=== PATIENT | female | born 1990 | race Caucasian/White ===

== ENCOUNTER 2020-04-26 18:49 | Observation (INO) | payer BC ==
[2020-04-26] MEDS ORDERED: SODIUM CHLORIDE 0.9% 1,000 ML IV STA (18:57)
--- NOTE | 2020-04-26 19:02 | ED ---
General Adult HPI - General Stated complaint: Tachycardia Time Seen by Provider: 04/26/20 18:51 Source: patient, EMS Mode of arrival: EMS Limitations: no limitations - History of Present Illness Initial comments: Dictation was produced using [email or web address] dictation software. please excuse any grammatical, word or spelling errors. This patient was cared for during a federal and state declared state of emergency secondary to Covid 19 Chief Complaint: 30-year-old female who is 13 weeks presents after dysrhythmia. History of Present Illness: 30-year-old female she is 13 weeks . Patient states she is having dinner proximal 1 hour prior to arrival when she took a drink of her cold water. All of a sudden she started to have tunnel vision. She felt like her vision went black. EMS was called. According to EMS patient had a heart rate on the monitor of approximately 1:30. After several minutes her heart rate went into the 220 range. She was treated for supraventricular tachycardia per she is given 1 dose of 6 mg of adenosine with no success. She is then given 12 mg of adenosine with conversion to sinus tachycardia. Patient states she feels fine currently. She doesn't have any history of arrhythmias per she has history of hypertension. No history of cardiac disease. The ROS documented in this emergency department record has been reviewed and confirmed by me. Those systems with pertinent positive or negative responses have been documented in the HPI. All other systems are other negative and/or noncontributory. PHYSICAL EXAM: General Impression: Alert and oriented x3, not in acute distress HEENT: Normocephalic atraumatic, extra-ocular movements intact, pupils equal and reactive to light bilaterally, mucous membranes moist. Cardiovascular: Heart regular rate and rhythm Chest: Able to complete full sentences, no retractions, no tachypnea Abdomen: abdomen soft, non-tender, non-distended, no organomegaly Musculoskeletal: Pulses present and equal in all extremities, no peripheral edema Motor: no focal deficits noted Neurological: CN II-XII grossly intact, no focal motor or sensory deficits noted Skin: Intact with no visualized rashes Psych: Normal affect and mood ED course: 30 y Old female presents today with episode of dysrhythmia. She is 13 weeks . She has no pelvic or abdominal complaints. Vital signs upon arrival shows heart rate of 1:15, rest of vital signs within acceptable limits. Patient's medications were reviewed patient takes labetalol 200 mg twice a day. heart tones are in the 150s. EKG interpretation: Ventricular rate 111, sinus tachycardia,. 156, QRS 70, QTc 448. No ID prolongation, no QTC prolongation, no ST or T-wave changes noted. There is S1 every 3 T3, T-wave inversions in 3 and aVF. No phthisis suggest WPW. Laboratory evaluation obtained. Mild leukocytosis 12.3 likely secondary chest pain coag panel is negative. Metabolic panel is negative. She was elevated 0.025. TSH normal. Urinalysis shows 1+ ketones rest of urinalysis is unremarka ble. Chest x-ray is nonacute. Patient was in the emergency department after fluids she still is persistently tachycardic. Patient was given her home dose of labetalol. Considering patient's degree of symptoms she will be admitted with cardiology and obstetrics consultation. Patient be admitted to [facility]. He is reevaluated at bedside approximately 8:20 PM. She is not showing any signs of respiratory distress. She has no chest pain. She denies any dyspnea. - Related Data Home Medications Medication Instructions Recorded Confirmed Aspirin EC [Ecotrin Low Dose] 81 mg PO DAILY 04/26/20 04/26/20 Cholecalciferol (Vitamin D3) 125 mcg PO DAILY 04/26/20 04/26/20 [Vitamin D3] Labetalol [Trandate] 200 mg PO BID@0800,199904/26/20 04/26/20 Npg-Grah-Ozbbg Acid 1 cap PO DAILY 04/26/20 04/26/20 [-U Capsule (formulary)] Allergies Allergy/AdvReac Type Severity Reaction Status Date / Time No Known Allergies Allergy Verified 04/26/20 18:59 Review of Systems ROS Statement: Those systems with pertinent positive or pertinent negative responses have been documented in the HPI. ROS Other: All systems not noted in ROS Statement are negative. Past Medical History Past Medical History: Hypertension History of Any Multi-Drug Resistant Organisms: None Reported Past Surgical History: Section, Cholecystectomy Past Psychological History: No Psychological Hx Reported Smoking Status: Never smoker Past Alcohol Use History: None Reported Past Drug Use History: None Reported General Exam Limitations: no limitations Course Vital Signs 04/26/20 04/26/20 04/26/20 18:51 19:15 19:17 Temperature 98.5 F Pulse Rate 115 H 80 Pulse Rate [ 115 H Folder Seamer Automatic ] Respiratory 18 18 Rate Blood Pressure 136/81 115/78 O2 Sat by Pulse 97 98 Oximetry Medical Decision Making - Lab Data Result diagrams: 04/26/20 19:00 04/26/20 19:00 Lab Results 04/26/20 04/26/20 04/26/20 Range/Units 19:00 19:00 19:00 WBC 12.3 H (3.8-10.6) k/uL RBC 4.53 (3.80-5.40) m/uL Hgb 13.8 (11.4-16.0) gm/dL Hct 39.9 (34.0-46.0) % MCV 88.1 (80.0-100.0) fL MCH 30.5 (25.0-35.0) pg MCHC 34.7 (31.0-37.0) g/dL RDW 12.0 (11.5-15.5) % Plt Count 235 (150-450) k/uL MPV 8.0 Neutrophils % 80 % Lymphocytes % 14 % Monocytes % 4 % Eosinophils % 1 % Basophils % 0 % Neutrophils # 9.8 H (1.3-7.7) k/uL Lymphocytes # 1.7 (1.0-4.8) k/uL Monocytes # 0.5 (0-1.0) k/uL Eosinophils # 0.1 (0-0.7) k/uL Basophils # 0.0 (0-0.2) k/uL PT 9.6 (9.0-12.0) sec INR 0.9 (<1.2) APTT 22.7 (22.0-30.0) sec Sodium (137-145) mmol/L Potassium (3.5-5.1) mmol/L Chloride (98-107) mmol/L Carbon Dioxide (22-30) mmol/L Anion Gap mmol/L BUN (7-17) mg/dL Creatinine (0.52-1.04) mg/dL Est GFR (CKD-EPI)AfAm (>60 ml/min/1.73 sqM) Est GFR (CKD-EPI)NonAf (>60 ml/min/1.73 sqM) Glucose (74-99) mg/dL Calcium (8.4-10.2) mg/dL Magnesium (1.6-2.3) mg/dL Total Bilirubin (0.2-1.3) mg/dL AST (14-36) U/L ALT (4-34) U/L Alkaline Phosphatase (38-126) U/L Troponin I (0.000-0.034) ng/mL Total Protein (6.3-8.2) g/dL Albumin (3.5-5.0) g/dL TSH (0.465-4.680) mIU/L Urine Color Colorless Urine Appearance Clear (Clear) Urine pH 6.5 (5.0-8.0) Ur Specific [place] 1.002 (1.001-1.035) Urine Protein Negative (Negative) Urine Glucose (UA) Negative (Negative) Urine Ketones 1+ H (Negative) Urine Blood Negative (Negative) Urine Nitrite Negative (Negative) Urine Bilirubin Negative (Negative) Urine Urobilinogen <2.0 (<2.0) mg/dL Ur Leukocyte Esterase Negative (Negative) 04/26/20 04/26/20 Range/Units 19:00 19:00 WBC (3.8-10.6) k/uL RBC (3.80-5.40) m/uL Hgb (11.4-16.0) gm/dL Hct (34.0-46.0) % MCV (80.0-100.0) fL MCH (25.0-35.0) pg MCHC (31.0-37.0) g/dL RDW (11.5-15.5) % Plt Count (150-450) k/uL MPV Neutrophils % % Lymphocytes % % Monocytes % % Eosinophils % % Basophils % % Neutrophils # (1.3-7.7) k/uL Lymphocytes # (1.0-4.8) k/uL Monocytes # (0-1.0) k/uL Eosinophils # (0-0.7) k/uL Basophils # (0-0.2) k/uL PT (9.0-12.0) sec INR (<1.2) APTT (22.0-30.0) sec Sodium 135 L (137-145) mmol/L Potassium 3.8 (3.5-5.1) mmol/L Chloride 107 (98-107) mmol/L Carbon Dioxide 22 (22-30) mmol/L Anion Gap 6 mmol/L BUN 11 (7-17) mg/dL Creatinine 0.62 (0.52-1.04) mg/dL Est GFR (CKD-EPI)AfAm >90 (>60 ml/min/1.73 sqM) Est GFR (CKD-EPI)NonAf >90 (>60 ml/min/1.73 sqM) Glucose 127 H (74-99) mg/dL Calcium 10.2 (8.4-10.2) mg/dL Magnesium 1.9 (1.6-2.3) mg/dL Total Bilirubin 0.3 (0.2-1.3) mg/dL AST 21 (14-36) U/L ALT 16 (4-34) U/L Alkaline Phosphatase 47 (38-126) U/L Troponin I 0.025 (0.000-0.034) ng/mL Total Protein 7.0 (6.3-8.2) g/dL Albumin 4.3 (3.5-5.0) g/dL TSH 1.120 (0.465-4.680) mIU/L Urine Color Urine Appearance (Clear) Urine pH (5.0-8.0) Ur Specific [place] (1.001-1.035) Urine Protein (Negative) Urine Glucose (UA) (Negative) Urine Ketones (Negative) Urine Blood (Negative) Urine Nitrite (Negative) Urine Bilirubin (Negative) Urine Urobilinogen (<2.0) mg/dL Ur Leukocyte Esterase (Negative) Disposition Clinical Impression: Arrhythmia Disposition: ADMITTED IP TO THIS HOSP Condition: Fair Referrals: Laverne Disla DO [Primary Care Provider] - 1-2 days Decision Time: 20:39
[2020-04-26 19:26] LABS: Basophils % (A) 0 %; Eosinophils # (A) 0.1 k/uL (0-0.7); Eosinophils % (A) 1 %; HCT 39.9 % (34.0-46.0); HGB 13.8 gm/dL (11.4-16.0); Lymphocytes # (A) 1.7 k/uL (1.0-4.8); Lymphocytes % (A) 14 %; MCH 30.5 pg (25.0-35.0); MCHC 34.7 g/dL (31.0-37.0); MCV 88.1 fL (80.0-100.0); Monocytes # (A) 0.5 k/uL (0-1.0); Monocytes % (A) 4 %; Neutrophils # (A) 9.8 k/uL (1.3-7.7); Neutrophils % (A) 80 %; Platelet Count 235 k/uL (150-450); RBC 4.53 m/uL (3.80-5.40); WBC 12.3 k/uL (3.8-10.6)
[2020-04-26 19:32] LABS: Appearance,Urine Clear (Clear); Bilirubin,Urine Negative (Negative); Blood,Urine Negative (Negative); Color,Urine Colorless; Glucose,Urine (UA) Negative (Negative); Ketones,Urine 1+ (Negative); Leukocyte Esterase,Urine Negative (Negative); Nitrite,Urine Negative (Negative); PH, Urine 6.5 (5.0-8.0); Protein,Urine Negative (Negative); Specific Gravity,Urine 1.002 (1.001-1.035); Urobilinogen,Urine <2.0 mg/dL (<2.0)
[2020-04-26 19:35] LABS: INR 0.9 (<1.2); Partial Thromboplastin Time 22.7 sec (22.0-30.0); Prothrombin Time 9.6 sec (9.0-12.0)
[2020-04-26] MEDS ORDERED: LABETALOL 200 MG TAB PO STA (19:44)
--- NOTE | 2020-04-26 19:51 | XR ---
EXAMINATION TYPE: XR chest 2V DATE OF EXAM: 04/26/2020 COMPARISON: NONE HISTORY: Syncope TECHNIQUE: 2 views FINDINGS: Heart and mediastinum are normal. Lungs are clear. Diaphragm is normal. Bony thorax appears normal. There are chest leads. IMPRESSION: Normal chest.
[2020-04-26 20:26] LABS: ALT 16 U/L (4-34); AST 21 U/L (14-36); African American GFR (CKD) >90 (>60 ml/min/1.73 sqM); Albumin 4.3 g/dL (3.5-5.0); Alkaline Phosphatase 47 U/L (38-126); Anion Gap 6 mmol/L; Blood Urea Nitrogen 11 mg/dL (7-17); Calcium 10.2 mg/dL (8.4-10.2); Carbon Dioxide 22 mmol/L (22-30); Chloride 107 mmol/L (98-107); Glucose 127 mg/dL (74-99); Magnesium 1.9 mg/dL (1.6-2.3); Non-African American GFR(CKD) >90 (>60 ml/min/1.73 sqM); Potassium 3.8 mmol/L (3.5-5.1); Sodium 135 mmol/L (137-145); Total Bilirubin 0.3 mg/dL (0.2-1.3)
[2020-04-26] MEDS ORDERED: NALOXONE 0.4 MG/ML 1 ML VIAL IV PRN (20:39)
[2020-04-26 22:42] VITALS: RESP 16
--- NOTE | 2020-04-27 07:17 | P.OBCN ---
History of Present Illness Consult date: 04/27/20 Requesting physician: Philip Clark Reason for consult: other (Incidental ) Chief complaint: Tachycardia History of present illness: This is a 30-year-old female 2 para 1 with an estimated date of confinement of 10/27/2020, estimated gestational age of 13-4/7 weeks, who presented to the emergency room with tachycardia. She states she was drinking a glass of [place] and then all of a sudden she had tunnel vision and her wish and went black. She did not pass out but she did feel very dizzy. She felt her heart beating very fast. When EMS arrived the shoulder heart rate at 130 and then elevated up to a maximum of 280. They did give her 6 mg of adenosine followed by 12 mg of adenosine and within approximately 1 minute, her heart rate returned to normal. She has had no symptoms since that time. She has had no complications so far this . She does see a Dr. Doug Nunez out of [place] and she has had care so far during this . She did have an ultrasound early on in to confirm . She does have a history of chronic hypertension and has been on labetalol for this. Her obstetrical history is significant for history of 1 section at term due to failure to progress. No other complications. Gynecologic history: No history of sexual transmitted diseases. Review of Systems Cardiovascular: Reports rapid heart beat (Currently resolved) Genitourinary: Reports Neurological: Reports visual changes (Resolved) Past Medical History Past Medical History: Hypertension History of Any Multi-Drug Resistant Organisms: None Reported Past Surgical History: Section, Cholecystectomy Past Psychological History: No Psychological Hx Reported Smoking Status: Never smoker Past Alcohol Use History: None Reported Past Drug Use History: None Reported Medications and Allergies Home Medications Medication Instructions Recorded Confirmed Type Aspirin EC [Ecotrin Low Dose] 81 mg PO DAILY 04/26/20 04/26/20 History Cholecalciferol (Vitamin D3) 125 mcg PO DAILY 04/26/20 04/26/20 History [Vitamin D3] Labetalol [Trandate] 200 mg PO BID@0800,199904/26/20 04/26/20 History Oak-Umql-Bjbva Acid 1 cap PO DAILY 04/26/20 04/26/20 History [-U Capsule (formulary)] Allergies Allergy/AdvReac Type Severity Reaction Status Date / Time No Known Allergies Allergy Verified 04/26/20 18:59 Exam Osteopathic Statement: *. No significant issues noted on an osteopathic structural exam other than those noted in the History and Physical/Consult. Vital Signs Temp Pulse Pulse Resp BP BP Pulse Ox 04/27/20 03:30 98.1 F 83 16 124/71 100 04/26/20 22:10 98 F 94 16 142/88 97 04/26/20 20:54 105 H 18 136/81 99 04/26/20 19:17 115 H 04/26/20 19:15 80 18 115/78 98 04/26/20 18:51 98.5 F 115 H 18 136/81 97 Intake and Output 04/26/20 04/27/20 04/27/20 22:59 06:59 14:59 Other: Voiding Method Toilet Toilet # Voids 1 2 # Bowel Movements 1 Weight 88.451 kg Results Result Diagrams: 04/26/20 19:00 04/26/20 19:00 Abnormal Lab Results - Last 24 Hours (Table) 04/26/20 04/26/20 04/26/20 Range/Units 19:00 19:00 19:00 WBC 12.3 H (3.8-10.6) k/uL Neutrophils # 9.8 H (1.3-7.7) k/uL Sodium 135 L (137-145) mmol/L Glucose 127 H (74-99) mg/dL Urine Ketones 1+ H (Negative) Assessment and Plan (1) as incidental finding Current Visit: Yes Status: Acute Code(s): Z33.1 - STATE, INCIDENTAL SNOMED Code(s): 83912291 (2) Arrhythmia Current Visit: Yes Status: Acute Code(s): I49.9 - CARDIAC ARRHYTHMIA, UNSPECIFIED SNOMED Code(s): 933096021 Plan: I have advised her to continue her vitamins and baby aspirin along with her labetalol. She will follow up with Dr. Pizarro after discharge. If there are any concerns about medication use in , please do not hesitate to contact us. Dr. Avalos will be apron operator this weekend.
[2020-04-27 07:46] VITALS: BP 134/77; PULSE 89; TEMP 98.9
[2020-04-27] MEDS ORDERED: LABETALOL 200 MG TAB PO SCH (08:00)
[2020-04-27] MEDS ORDERED: PRENATAL VIT-IRON-FOLIC ACID 1 EACH CAP PO SCH (09:00)
[2020-04-27] MEDS ORDERED: CHOLECALCIFEROL 400 UNIT TAB PO SCH (09:00)
[2020-04-27] MEDS ORDERED: ASPIRIN 81 MG PO SCH (09:00)
--- NOTE | 2020-04-27 11:39 | P.CRDCN ---
History of Present Illness Consult date: 04/27/20 Reason for Consult (text): Arrhythmia and presyncope History of present illness: The patient is a 30-year-old female with past medical history of hypertension, who presented to the hospital with new onset of cardiac arrhythmia. The patient states she was eating dinner when she took a large gulp of ice water. She then immediately lost her vision and became dizzy. Her vision returned and she was able to lie down on her couch until EMS arrived. At that point in time she was evaluated with a heart rate around the 140, when she ambulated with assistance to the ambulance. She was then found to have a rapid supraventricular rhythm with a heart rate over 200. She was subsequently given 6 mg of adenosine, followed by 12 mg which converted her back to sinus mechanism. She was transported to the emergency room where she then received an additional dose of labetalol, which is her home medication for hypertension during . The patient was interviewed and examined this morning lying comfortably in bed. She states she is completely asymptomatic from the cardiac standpoint. No chest pain or chest pressure. No palpitations, dizziness, or lightheadedness. DIAGNOSTICS: Rhythm strips via EMS show AVNRT, followed by sinus rhythm EKG shows sinus tachycardia with normal MA, narrow QRS and QT less than or 100 ms Vital signs show blood pressure at 134/77, heart rate 89, respiratory rate 16, temperature 98.9F, SpO2 99% on room air Lab work shows WBC at 12.3, hemoglobin 13.8, platelet count 235, sodium 135, potassium 3.8, BUN 11, creatinine 0.62, magnesium 1.9, AST 21, ALT 16, troponin 0.025, TSH 1.120 PAST MEDICAL HISTORY: Hypertension REVIEW OF SYSTEMS: No fever or chills. No cough or expectoration. No diap horesis. Patient denies headache, dizziness, blurred vision, double vision. Patient denies any stomach discomfort. No nausea, vomiting. No hematochezia. No hematemesis. Denies any black stools or blood in his stools. Denies dysuria or hematuria. No muscle weakness or numbness. No chest pain or chest pressure. No shortness of breath. PHYSICAL EXAMINATION: This is a 30-year-old female in no apparent distress at the time of my examination. HEENT: Head is atraumatic, normocephalic. Pupils are equal, round. Sclerae anicteric. Conjunctivae are clear. Mucous membranes of the mouth are moist. Neck is supple. There is no jugular venous distention. No carotid bruit is heard. CHEST EXAMINATION: Lungs are clear to auscultation. No chest wall tenderness is noted on palpation or with deep breathing. HEART EXAMINATION: Heart regular rate and rhythm. S1, S2 heard. No murmurs, gallops or rub. ABDOMEN: Soft, nontender. Bowel sounds are heard. No organomegaly noted. EXTREMITIES: 2+ peripheral pulses with no evidence of peripheral edema and no calf tenderness noted. NEUROLOGIC EXAMINATION: Patient is awake, alert and oriented x3. 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 It is likely her episode was triggered by rapid ingestion of ice water. She was instructed to continue as normal and we will consider SVT ablation in the future, approximately 8-9 months after she gives to her child. At that time we will also do secondary workup for hypertension. Should she have an additional episode of AVNRT she was instructed on vagal maneuvers and additional glasses of ice water. Should her symptoms not resolve, she was instructed to notify EMS and logistician should proceed with 12 mg of adenosine. She will follow-up in our office in several weeks for continued monitoring of hypertension and preeclampsia. Past Medical History Past Medical History: Hypertension History of Any Multi-Drug Resistant Organisms: None Reported Past Surgical History: Section, Cholecystectomy Past Psychological History: No Psychological Hx Reported Smoking Status: Never smoker Past Alcohol Use History: None Reported Past Drug Use History: None Reported Medications and Allergies Home Medications Medication Instructions Recorded Confirmed Type Aspirin EC [Ecotrin Low Dose] 81 mg PO DAILY 04/26/20 04/26/20 History Cholecalciferol (Vitamin D3) 125 mcg PO DAILY 04/26/20 04/26/20 History [Vitamin D3] Labetalol [Trandate] 200 mg PO BID@0800,199904/26/20 04/26/20 History Iha-Vrri-Nhqna Acid 1 cap PO DAILY 04/26/20 04/26/20 History [-U Capsule (formulary)] Allergies Allergy/AdvReac Type Severity Reaction Status Date / Time No Known Allergies Allergy Verified 04/26/20 18:59 Physical Exam Vitals: Vital Signs Temp Pulse Pulse Resp BP BP Pulse Ox 04/27/20 07:43 98.9 F 89 16 134/77 99 04/27/20 03:30 98.1 F 83 16 124/71 100 04/26/20 22:10 98 F 94 16 142/88 97 04/26/20 20:54 105 H 18 136/81 99 04/26/20 19:17 115 H 04/26/20 19:15 80 18 115/78 98 04/26/20 18:51 98.5 F 115 H 18 136/81 97 Intake and Output 04/26/20 04/27/20 04/27/20 22:59 06:59 14:59 Other: Voiding Method Toilet Toilet Toilet # Voids 1 2 # Bowel Movements 1 1 Weight 88.451 kg Results 04/26/20 19:00 04/26/20 19:00 Cardiac Enzymes 04/26/20 04/26/20 Range/Units 19:00 19:00 AST 21 (14-36) U/L Troponin I 0.025 (0.000-0.034) ng/mL Coagulation 04/26/20 Range/Units 19:00 PT 9.6 (9.0-12.0) sec APTT 22.7 (22.0-30.0) sec CBC 04/26/20 Range/Units 19:00 WBC 12.3 H (3.8-10.6) k/uL RBC 4.53 (3.80-5.40) m/uL Hgb 13.8 (11.4-16.0) gm/dL Hct 39.9 (34.0-46.0) % Plt Count 235 (150-450) k/uL Comprehensive Metabolic Panel 04/26/20 Range/Units 19:00 Sodium 135 L (137-145) mmol/L Potassium 3.8 (3.5-5.1) mmol/L Chloride 107 (98-107) mmol/L Carbon Dioxide 22 (22-30) mmol/L BUN 11 (7-17) mg/dL Creatinine 0.62 (0.52-1.04) mg/dL Glucose 127 H (74-99) mg/dL Calcium 10.2 (8.4-10.2) mg/dL AST 21 (14-36) U/L ALT 16 (4-34) U/L Alkaline Phosphatase 47 (38-126) U/L Total Protein 7.0 (6.3-8.2) g/dL Albumin 4.3 (3.5-5.0) g/dL Current Medications Generic Name Dose Route Start Last Admin Trade Name Freq PRN Reason Stop Dose Admin Aspirin 81 mg 04/27/20 09:00 04/27/20 08:48 Aspirin 81 Mg PO 81 mg DAILY MELISSA Administration Cholecalciferol 200 unit 04/27/20 09:00 04/27/20 08:48 Cholecalciferol 400 Unit Tab PO 200 unit DAILY MELISSA Administration Labetalol HCl 200 mg 04/27/20 08:00 04/27/20 08:48 Labetalol 200 Mg Tab PO 200 mg BID@0800,2000 MELISSA Administration Multivi/Iron Carb/Fe Sulf/FA/Prenat 1 each 04/27/20 09:00 04/27/20 08:48 Swa-Xfmn-Htrio Acid 1 Each Cap PO 1 each DAILY MELISSA Administration Naloxone HCl 0.2 mg 04/26/20 20:39 Naloxone 0.4 Mg/Ml 1 Ml Vial IV Q2M PRN Opioid Reversal Intake and Output 04/26/20 04/27/20 04/27/20 22:59 06:59 14:59 Other: Voiding Method Toilet Toilet Toilet # Voids 1 2 # Bowel Movements 1 1 Weight 88.451 kg 04/26/20 19:00 04/26/20 19:00
== END 2020-04-27 13:00 | disposition home or self-care (01) ==
LOC: EC 18:49 → 1SOBS 20:40
PROVIDERS: ADMIT Hospitalist; ATTEND Hospitalist
DX: O99.411 Diseases of the circulatory system complicating pregnancy, first trimester (principal); I47.1 Supraventricular tachycardia; O11.1 Pre-existing hypertension with pre-eclampsia, first trimester; O10.011 Pre-existing essential hypertension complicating pregnancy, first trimester; Z3A.13 13 weeks gestation of pregnancy; Z79.899 Other long term (current) drug therapy; Z79.82 Long term (current) use of aspirin; Z98.890 Other specified postprocedural states; Z90.49 Acquired absence of other specified parts of digestive tract
CPT/HCPCS: 93005 ×2; 96360; 96361; 99285; 36415; 80053; 83735; 84443; 84484; 85025; 85610; 85730; 81003; 71046; G0378 ×2; S0197

== ENCOUNTER → 2021-02-21 | Outpatient (CLI) | payer BC ==
--- NOTE | 2021-02-21 08:58 | US ---
EXAMINATION TYPE: US renal artery duplex complet DATE OF EXAM: 02/21/2021 COMPARISON: NONE CLINICAL HISTORY: I70.1 renal artery stenosis. controlled HTN for 6 years MEASUREMENTS: RENAL SIZE: Rt Kidney: 10.9 x 6.0 x 4.7cm Lt Kidney: 11.5 x 5.5 x 5.0cm RESISTANCE INDEX Right: 0.61 Left: 0.63 RA/AO RATIO (< 3.5 ) Right: 1.4 Left: 1.3 RA VELOCITY ( < 180 cm/s) Right: 165.1 cm/s Left: 162.9 cm/s Technical limitations due to overlying bowel content. aorta appears unremarkable. dilated renal pelv is bilateral kidneys. no evidence of renal artery stenosis as visualized. IMPRESSION: Bilateral fullness of the renal collecting systems. No evidence for renal artery stenosis.
== END | disposition home or self-care (01) ==
LOC: RADUSWWP 07:54
PROVIDERS: ATTEND Internal Medicine Clinical Cardiac Electrophysiology
DX: I10 Essential (primary) hypertension (principal)
CPT/HCPCS: 93975

== ENCOUNTER 2022-03-31 11:58 | Day surgery (SDC) | payer BC ==
[2022-03-28 08:34] VITALS: BMI 32.3
[~2022-03-31 11:58] MED LIST: DEXAMETHASONE SOD PHOSPHATE 4 MG/ML 1 ML VIAL IV ONE; LIDOCAINE 1% (10MG/ML) FOR IV START INTRADERMA PRN; MORPHINE SULFATE 2 MG/ML SYRINGE IV PRN; ONDANSETRON 4 MG/2 ML VIAL IVP PRN; SODIUM CHLORIDE 0.9% 1,000 ML IV SCH
[2022-03-31 12:53] LABS: Basophils % (A) 0 %; Eosinophils % (A) 0 %; HCT 44.2 % (34.0-46.0); HGB 15.7 gm/dL (11.4-16.0); Lymphocytes # (A) 1.9 k/uL (1.0-4.8); Lymphocytes % (A) 23 %; MCH 31.7 pg (25.0-35.0); MCHC 35.6 g/dL (31.0-37.0); Mean Platelet Volume 9.6; Monocytes # (A) 0.5 k/uL (0-1.0); Monocytes % (A) 5 %; Neutrophils # (A) 5.8 k/uL (1.3-7.7); Neutrophils % (A) 69 %; Platelet Count 239 k/uL (150-450); RBC 4.96 m/uL (3.80-5.40); RDW 12.1 % (11.5-15.5); WBC 8.4 k/uL (3.8-10.6)
[2022-03-31] MEDS ORDERED: MIDAZOLAM 2 MG/2 ML VIAL IV STA (12:53)
[2022-03-31] MEDS ORDERED: MIDAZOLAM 2 MG/2 ML VIAL IVP ONE (12:54)
[2022-03-31 13:02] LABS: African American GFR (CKD) >90 (>60 ml/min/1.73 sqM); Anion Gap 7 mmol/L; Blood Urea Nitrogen 12 mg/dL (7-17); Calcium 9.3 mg/dL (8.4-10.2); Carbon Dioxide 29 mmol/L (22-30); Chloride 104 mmol/L (98-107); Glucose 105 mg/dL (74-99); Non-African American GFR(CKD) >90 (>60 ml/min/1.73 sqM); Potassium 4.3 mmol/L (3.5-5.1); Sodium 140 mmol/L (137-145)
[2022-03-31] MEDS ORDERED: fentaNYL (PF) 50 MCG/ML 2 ML AMP ONE (14:20)
[2022-03-31] MEDS ORDERED: ISOPROTERENOL 250 MCG/1.25 ML SYR IV ONE (14:20)
[2022-03-31] MEDS ORDERED: diphenhydrAMINE 50 MG/ML 1 ML VIAL ONE (14:20)
[2022-03-31] MEDS ORDERED: ONDANSETRON 4 MG/2 ML VIAL ONE (14:20)
[2022-03-31] MEDS ORDERED: HYDROmorphone (PF) 1 MG/ML ONE (14:20)
[2022-03-31] MEDS ORDERED: MIDAZOLAM 2 MG/2 ML VIAL ONE (14:20)
[2022-03-31] MEDS ORDERED: HEPARIN SODIUM (1,000 UNIT/ML) 1,000 UNIT in SODIUM CHLORIDE 0.9% 1,000 ML IRRIGATION ONE (14:41)
[2022-03-31] MEDS ORDERED: LIDOCAINE 1% INJ 10MG/ML (30 ML VIAL-PF) SQ ONE (15:05)
--- NOTE | 2022-03-31 16:33 | P.HPCAR ---
History of Present Illness This is Dr. Miller dictating an H/P on this patient The patient was interviewed and examined IMPRESSION / ASSESSMENT: Recurrent SVT, adenosine sensitive Hypertension, on amlodipine 7.5 mg daily PLAN: Diagnostic EP study and radiofrequency ablation as indicated Continue and maximize antihypertensive therapy HPI Patient has a history of recurrent palpitations She has SVT which is adenosine sensitive She also has a history of early-onset hypertension for no evidence for renal artery stenosis Normal TSH She's been treated with labetalol but she's had recurrent SVT despite She denies any fever chills cough expectoration No nausea vomiting diarrhea No syncope recently ROS: No fever chills or rigors, no cough, phlegm or expectoration, no nausea, vomiting or diarrhea, no hematuria, dysuria, no musculoskeletal complaints, no strokes or seizures, no skin lesions. EXAMINATION: Normal heart sounds normal S1 normal S2 Normal breath sounds no rhonchi no crackles No lower extremity edema No JVD Pulse rate in the 70s Blood pressure 141/86. His mercury REVIEW OF LABS, ECG & MEDICAL DATA Hemoglobin 15.7 Sodium 140, potassium 4.3, BUN 12 and creatinine 0.75 Beta-hCG not detected Physical Exam Vitals: Vital Signs Pulse Resp BP Pulse Ox 03/31/22 12:35 73 18 141/86 99 Intake and Output 03/31/22 03/31/22 03/31/22 06:59 14:59 22:59 Intake Total 20 Balance 20 Intake: IV 20 Other: Weight 88.41 kg Past Medical History Past Medical History: Hypertension, Supraventricular Tachycardia (SVT) Additional Past Medical History / Comment(s): EPISODES OF SVT A COUPLE YEARS AGO. SEE DR. [facility]ER[facility] History of Any Multi-Drug Resistant Organisms: None Reported Past Surgical History: Section, Cholecystectomy Past Anesthesia/Blood Transfusion Reactions: No Reported Reaction Smoking Status: Never smoker - Past Family History Mother Family Medical History: No Reported History Physical Examination Vital Signs Pulse Resp BP Pulse Ox 03/31/22 12:35 73 18 141/86 99 Intake and Output 03/31/22 03/31/22 03/31/22 06:59 14:59 22:59 Intake Total 20 Balance 20 Intake: IV 20 Other: Weight 88.41 kg Results 03/31/22 12:20 03/31/22 12:20 CBC 03/31/22 Range/Units 12:20 WBC 8.4 (3.8-10.6) k/uL RBC 4.96 (3.80-5.40) m/uL Hgb 15.7 (11.4-16.0) gm/dL Hct 44.2 (34.0-46.0) % Plt Count 239 (150-450) k/uL Comprehensive Metabolic Panel 03/31/22 Range/Units 12:20 Sodium 140 (137-145) mmol/L Potassium 4.3 (3.5-5.1) mmol/L Chloride 104 (98-107) mmol/L Carbon Dioxide 29 (22-30) mmol/L BUN 12 (7-17) mg/dL Creatinine 0.75 (0.52-1.04) mg/dL Glucose 105 H (74-99) mg/dL Calcium 9.3 (8.4-10.2) mg/dL Current Medications Generic Name Dose Route Start Last Admin Trade Name Freq PRN Reason Stop Dose Admin Lactated Ringer's 1,000 mls @ 20 mls/hr 03/31/22 06:07 Lactated Ringers IV 04/30/22 06:08 .Q24H MELISSA Sodium Chloride 1,000 mls @ 50 mls/hr 03/31/22 06:07 03/31/22 12:37 Saline 0.9% IV 04/30/22 06:08 20 mls .Q20H MELISSA Administration Lidocaine HCl 0.1 ml 03/31/22 06:07 Lidocaine 1% (10mg/Ml) For Iv Start INTRADERMA 04/30/22 06:08 PER PROTOCOL PRN IV Start Morphine Sulfate 2 mg 03/31/22 06:07 Morphine Sulfate 2 Mg/Ml Syringe IV 03/31/22 23:00 Q5M PRN Phase 1 or 2 - Pain Control Ondansetron HCl 4 mg 03/31/22 06:07 Ondansetron 4 Mg/2 Ml Vial IVP 03/31/22 23:00 ONCE PRN Phase 1 or 2 - Nausea/Vomiting Intake and Output 03/31/22 03/31/22 03/31/22 06:59 14:59 22:59 Intake Total 20 Balance 20 Intake: IV 20 Other: Weight 88.41 kg Patient Weight 04/01/22 06:59 Weight 88.41 kg 03/31/22 12:20 03/31/22 12:20
[2022-03-31] MEDS ORDERED: LACTATED RINGERS 1,000 ML IV ONE (16:35)
--- NOTE | 2022-03-31 16:35 | P.PRLE ---
RE: Laverne Dunbar Dear Dr. Jose E Galloway underwent a diagnostic EP study is revealed typical AV node reentrant tachycardia She underwent successful mapping and ablation of the slow pathway for management of AV génesis reentry The tachycardia was rendered noninducible There was no evidence for slow pathway conduction following successful ablation Hopefully this takes care of her SVT Her blood pressure is recently controlled on amlodipine 7.5 mg by mouth daily and she will continue this Thank you for entrusting me with the care of the patient Warm regards Sincerely Kev Miller
--- NOTE | 2022-03-31 16:41 | P.EPPROC ---
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 Written informed consent was obtained prior to procedure Diagnostic cath was placed by the right and left femoral veins, into the high right atrium, His bundle area, CS and right ventricle. Baseline measurements were as follows sinus cycle length 745 ms, KS interval 204 ms, QRS 88 ms and QT interval 358 ms AH 37 ms and HV interval 48 ms Sinus recovery times at 504 100 ms were 718 and 731 ms Carretta sinus recovery times were within normal limits AV node Wenckebach block 270 ms with no clear-cut evidence for slow pathway conduction with straight pacing VA Wenckebach block 230 ms Retrograde conduction was midline and decremental Parahisian pacing revealed génesis response No evidence for antegrade slow pathway conduction With Atrial extra stimulation there was a jump in the AH interval @500/270 ms with occasional echo beats SVT was very easily inducible with double extrastimuli posterior and high right atrium for and from the coronary sinus Short septal times of less than 25 ms VAV response with ventricular pacing A long sheath was placed, irrigated tip catheter was placed 3-D electro-mapping was performed Slow pathway was mapped RF ablation was performed [place] contact force, good power delivered Slow pathway eliminated No evidence for AV node reentry with atrial extra stimulation or with straight pacing ventricular pacing High doses of Isuprel employed No evidence for génesis reentry with details EP study Patient tolerance the procedure well without any acute complications Sheaths removed and Vascade closure applied
[2022-03-31] MEDS ORDERED: ACETAMINOPHEN TAB 325 MG TAB PO PRN (16:47)
[2022-03-31] MEDS ORDERED: ACETAMINOPHEN IV (For NPO) 1,000 MG in EMPTY BAG 1 BAG IVPB ONE (17:00)
[2022-03-31] MEDS: LACTATED RINGERS 1,000 ML IV SCH (18:49)
[2022-04-01 07:45] VITALS: BP 138/80; PULSE 81; RESP 15; TEMP 98.3
[2022-04-01] MEDS ORDERED: amLODIPine 5 MG TAB PO SCH (09:00)
--- NOTE | 2022-04-01 10:17 | P.DS ---
Providers Date of admission: t Expected date of discharge: 04/01/22 Attending physician: Kev Miller Primary care physician: Laverne Disla Hospital Course: The patient was interviewed and examined IMPRESSION / ASSESSMENT: Recurrent SVT, adenosine sensitive Hypertension, on amlodipine 7.5 mg daily PLAN: Status post EP study and radiofrequency ablation Continue current antihypertensive therapy HPI Patient has a history of recurrent palpitations She has SVT which is adenosine sensitive She also has a history of early-onset hypertension for no evidence for renal artery stenosis Normal TSH She's been treated with labetalol but she's had recurrent SVT despite She denies any fever chills cough expectoration No nausea vomiting diarrhea No syncope recently ROS: No fever chills or rigors, no cough, phlegm or expectoration, no nausea, vomiting or diarrhea, no hematuria, dysuria, no musculoskeletal complaints, no strokes or seizures, no skin lesions. EXAMINATION: Normal heart sounds normal S1 normal S2 Normal breath sounds no rhonchi no crackles No lower extremity edema No JVD Pulse rate in the 70s Blood pressure 141/86. His mercury REVIEW OF LABS, ECG & MEDICAL DATA Hemoglobin 15.7 Sodium 140, potassium 4.3, BUN 12 and creatinine 0.75 Beta-hCG not detected Patient is cleared for discharge home today. Nurse practitioner note has been reviewed, I agree with the documented findings and plan of care. Patient was seen and examined. Plan - Discharge Summary Discharge Rx Participant: Yes New Discharge Prescriptions: New Hydrocortisone Oint [Hydrocortisone 2.5% Oint] 1 applic TOPICAL BID #28 gm Continue amLODIPine [Norvasc] 7.5 mg PO DAILY Discharge Medication List amLODIPine [Norvasc] 7.5 mg PO DAILY 03/28/22 [History] Hydrocortisone Oint [Hydrocortisone 2.5% Oint] 1 applic TOPICAL BID #28 gm 04/01/22 [Rx] Follow up Appointment(s)/Referral(s): Kev Miller MD [STAFF PHYSICIAN] - 1 Week Discharge Disposition: HOME SELF-CARE
--- NOTE | 2022-04-01 10:36 | P.DS ---
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 Miller in 7-10 days Plan - Discharge Summary Discharge Rx Participant: Yes New Discharge Prescriptions: New Hydrocortisone Oint [Hydrocortisone 2.5% Oint] 1 applic TOPICAL BID #28 gm Continue amLODIPine [Norvasc] 7.5 mg PO DAILY Discharge Medication List amLODIPine [Norvasc] 7.5 mg PO DAILY 03/28/22 [History] Hydrocortisone Oint [Hydrocortisone 2.5% Oint] 1 applic TOPICAL BID #28 gm 04/01/22 [Rx] Follow up Appointment(s)/Referral(s): Kev Miller MD [STAFF PHYSICIAN] - 04/10/22 10:30 am Patient Instructions/Handouts: *Surgery [facility] - After Heart Catheterization - [place] Instructions, Electrophysiology Study (DC) Discharge Disposition: HOME SELF-CARE
[2022-04-01] MEDS: LACTATED RINGERS 1,000 ML IV SCH (11:07)
== END 2022-04-01 11:14 | disposition home or self-care (01) ==
LOC: CATHEP 11:58 → 6NMEDSUR 16:38 → CATHEP 04-01 11:14
PROVIDERS: ATTEND Internal Medicine Clinical Cardiac Electrophysiology
DX: I45.10 Unspecified right bundle-branch block (principal); I10 Essential (primary) hypertension; Z90.49 Acquired absence of other specified parts of digestive tract
CPT/HCPCS: 93623; 93653; 80048; 85025; 81025; C1894; C1769 ×2; C1760; C1730 ×3; C1893; C1732; J2250; J1200; J2405; J2001; J3010; J1644; J1170; J0131